=== PATIENT | male | born 1945 | race Caucasian/White ===

== ENCOUNTER 2017-08-25 13:02 | Observation (INO) | payer OTHER, MEDICARE, BC ==
--- NOTE | 2017-08-25 14:29 | EDM.PDOC ---
ED HPI GENERAL MEDICAL PROBLEM - General Chief Complaint: Neuro Symptoms/Deficits Stated Complaint: POSSIBLE MINI STROKE Time Seen by Provider: 08/25/17 14:24 Source of Information: Reports: Patient, Family History Limitations: Reports: No Limitations, Altered Mental Status, Other (pt has loss of short term memory and is repeating the questions. ) - History of Present Illness INITIAL COMMENTS - FREE TEXT/NARRATIVE: pt arrived with loss of short term memory. He was last known normal at 6 thirty am. He was found about 10 thirty repeating the same question over and over He was complaining of a headache. Onset: Today, Other ( known to have started about ten thirty. ) Duration: Hour(s): Location: Reports: Head, Other (loss of short term memory. ) Associated Symptoms: Reports: Confusion - Related Data Allergies Allergy/AdvReac Type Severity Reaction Status Date / Time No Known Allergies Allergy Verified 08/25/17 14:34 Past Medical History - Past Health History Medical/Surgical History: Denies Medical/Surgical History Social & Family History - Tobacco Use Smoking Status *Q: Never Smoker ED ROS GENERAL - Review of Systems Review Of Systems: See Below Constitutional: Reports: No Symptoms HEENT: Reports: No Symptoms Respiratory: Reports: No Symptoms Cardiovascular: Reports: No Symptoms Endocrine: Reports: No Symptoms GI/Abdominal: Reports: No Symptoms : Reports: No Symptoms Musculoskeletal: Reports: No Symptoms Skin: Reports: No Symptoms Neurological: Reports: Other (pt has loss of short term memory. ) Psychiatric: Reports: Anxiety ED EXAM, NEURO - Physical Exam Exam: See Below Text/Narrative:: pt arrived with a history of starting with a loss of short term memory about ten thirty. Exam Limited By: No Limitations General Appearance: Alert, Anxious, Moderate Distress, Other (pupils are equal and reactive. ) Ears: Normal TMs Nose: Normal Inspection Throat/Mouth: Normal Inspection Head Exam: Atraumatic Neck: Normal Inspection Respiratory/Chest: No Respiratory Distress Cardiovascular: Regular Rate, Rhythm GI/Abdominal: Soft, Non-Tender (Male) Exam: Deferred Rectal (Males) Exam: Deferred Neurological: Alert, Other (marked short term emmory loss) Back Exam: Normal Inspection Extremities: Normal Inspection Psychiatric: Anxious Course - Vital Signs Last Recorded V/S: Last Vital Signs Temp 36.3 C 08/25/17 13:28 Pulse 105 H 08/25/17 13:28 Resp 14 08/25/17 13:28 BP 183/97 H 08/25/17 13:28 Pulse Ox 98 08/25/17 13:28 - Orders/Labs/Meds Orders: Active Orders 24 hr Category Date Time Status EKG Documentation Completion [RC] ASDIRECTED Care 08/25/17 14:30 Ordered Head wo Cont [CT] Stat Exams 08/25/17 13:20 Taken EKG 12 Lead [EK] Routine Ther 08/25/17 14:30 Ordered Labs: Laboratory Tests 08/25/17 08/25/17 08/25/17 Range/Units 13:18 13:25 13:25 WBC 11.2 H (4.5-11.0) K/uL RBC 5.08 (4.30-5.90) M/uL Hgb 15.4 H (12.0-15.0) g/dL Hct 44.5 (40.0-54.0) % MCV 88 (80-98) fL MCH 30 (27-31) pg MCHC 35 (32-36) % Plt Count 177 (150-400) K/uL Neut % (Auto) 86 H (36-66) % Lymph % (Auto) 9 L (24-44) % [place] % (Auto) 5 (2-6) % Eos % (Auto) 0 L (2-4) % Baso % (Auto) 0 (0-1) % ABG Carboxyhemoglobin (0.0-1.6) % Sodium 135 L (140-148) mmol/L Potassium 3.9 (3.6-5.2) mmol/L Chloride 100 (100-108) mmol/L Carbon Dioxide 22 (21-32) mmol/L Anion Gap 16.9 H (5.0-14.0) mmol/L BUN 24 H (7-18) mg/dL Creatinine 1.3 (0.8-1.3) mg/dL Est Cr Clr Drug Dosing 53.81 mL/min Estimated GFR (MDRD) 54 L (>60) Glucose 156 H (74-106) mg/dL Calcium 9.2 (8.5-10.1) mg/dL Total Bilirubin 0.5 (0.2-1.0) mg/dL AST 24 (15-37) U/L ALT 30 (12-78) U/L Alkaline Phosphatase 49 (46-116) U/L Total Protein 7.7 (6.4-8.2) g/dL Albumin 4.2 (3.4-5.0) g/dL Globulin 3.5 (2.3-3.5) g/dL Albumin/Globulin Ratio 1.2 (1.2-2.2) Urine Color Yellow Urine Appearance Clear Urine pH 5.0 (4.5-8.0) Ur Specific [place] 1.025 (1.008-1.030) Urine Protein 30 H (NEGATIVE) mg/dL Urine Glucose (UA) Normal (NEGATIVE) mg/dL Urine Ketones 15 H (NEGATIVE) mg/dL Urine Occult Blood Large (NEGATIVE) Urine Nitrite Negative (NEGAITVE) Urine Bilirubin Negative (NEGATIVE) Urine Urobilinogen Normal (NORMAL) mg/dL Ur Leukocyte Esterase Negative (NEGATIVE) Urine RBC 0-5 (0-5) Urine WBC Not seen (0-5) Ur Epithelial Cells Not seen Amorphous Sediment Few Urine Bacteria Not seen Urine Mucus Not seen 08/25/17 Range/Units 13:25 WBC (4.5-11.0) K/uL RBC (4.30-5.90) M/uL Hgb (12.0-15.0) g/dL Hct (40.0-54.0) % MCV (80-98) fL MCH (27-31) pg MCHC (32-36) % Plt Count (150-400) K/uL Neut % (Auto) (36-66) % Lymph % (Auto) (24-44) % Crawford % (Auto) (2-6) % Eos % (Auto) (2-4) % Baso % (Auto) (0-1) % ABG Carboxyhemoglobin 1.9 H (0.0-1.6) % Sodium (140-148) mmol/L Potassium (3.6-5.2) mmol/L Chloride (100-108) mmol/L Carbon Dioxide (21-32) mmol/L Anion Gap (5.0-14.0) mmol/L BUN (7-18) mg/dL Creatinine (0.8-1.3) mg/dL Est Cr Clr Drug Dosing mL/min Estimated GFR (MDRD) (>60) Glucose (74-106) mg/dL Calcium (8.5-10.1) mg/dL Total Bilirubin (0.2-1.0) mg/dL AST (15-37) U/L ALT (12-78) U/L Alkaline Phosphatase (46-116) U/L Total Protein (6.4-8.2) g/dL Albumin (3.4-5.0) g/dL Globulin (2.3-3.5) g/dL Albumin/Globulin Ratio (1.2-2.2) Urine Color Urine Appearance Urine pH (4.5-8.0) Ur Specific [place] (1.008-1.030) Urine Protein (NEGATIVE) mg/dL Urine Glucose (UA) (NEGATIVE) mg/dL Urine Ketones (NEGATIVE) mg/dL Urine Occult Blood (NEGATIVE) Urine Nitrite (NEGAITVE) Urine Bilirubin (NEGATIVE) Urine Urobilinogen (NORMAL) mg/dL Ur Leukocyte Esterase (NEGATIVE) Urine RBC (0-5) Urine WBC (0-5) Ur Epithelial Cells Amorphous Sediment Urine Bacteria Urine Mucus - Re-Assessments/Exams Free Text/Narrative Re-Assessment/Exam: 08/25/17 14:33 cat scan of the head was neg. He had no lab work that looked unusual. Departure - Departure Time of Disposition: 14:34 Disposition: Admitted As Inpatient 66 Condition: Fair Clinical Impression: Global amnesia - Discharge Information Referrals: PCP,None [Primary Care Provider] - Forms: ED Department Discharge Care Plan Goals: admit to Dr gusman - My Orders Last 24 Hours: My Active Orders 08/25/17 13:20 Head wo Cont [CT] Stat 08/25/17 14:30 EKG Documentation Completion [RC] ASDIRECTED EKG 12 Lead [EK] Routine - Assessment/Plan Last 24 Hours: My Active Orders 08/25/17 13:20 Head wo Cont [CT] Stat 08/25/17 14:30 EKG Documentation Completion [RC] ASDIRECTED EKG 12 Lead [EK] Routine
--- NOTE | 2017-08-25 15:52 | PCM.HP ---
H&P History of Present Illness - General Date of Service: 08/25/17 Admit Problem/Dx: Admission Diagnosis/Problem Admission Diagnosis/Problem Amnesia Source of Information: Patient, Family, Provider, RN Notes Reviewed History Limitations: Reports: No Limitations - History of Present Illness Initial Comments - Free Text/Narative: Mr. Santa is a 71-year-old gentleman who is admitted to observation status for further evaluation and management of amnesia. He was well until this morning, when he developed abrupt onset antegrade amnesia. He had been out doing some ice fishing, his son noted that he was asking the same question repeatedly and brought him in for evaluation. He denies any other neurologic symptoms, weakness , or sensory changes. Laboratory studies are unremarkable, CT scan of the head shows no acute abnormalities. He has never had similar symptoms in the past. - Related Data Allergies/Adverse Reactions: Allergies Allergy/AdvReac Type Severity Reaction Status Date / Time No Known Allergies Allergy Verified 08/25/17 14:34 Home Medications: Home Meds Indomethacin [Indocin] 1 tab PO DAILY 08/25/17 [History] Spironolactone [Aldactone] 1 tab PO DAILY 08/25/17 [History] Past Medical History - Past Health History Medical/Surgical History: Denies Medical/Surgical History Social & Family History - Tobacco Use Smoking Status *Q: Never Smoker H&P Review of Systems - Review of Systems: Review Of Systems: See Below General: Denies: Fever, Chills, Weakness, Diaphoresis, Decreased Appetite HEENT: Reports: No Symptoms Pulmonary: Reports: No Symptoms Cardiovascular: Reports: No Symptoms Gastrointestinal: Reports: No Symptoms Genitourinary: Reports: No Symptoms Musculoskeletal: Reports: No Symptoms Skin: Reports: No Symptoms Psychiatric: Reports: No Symptoms Neurological: Reports: Other (Amnesia). Denies: Confusion, Dizziness, Headache , Numbness, Paresthesia, Seizure, Trouble Speaking, Difficulty Walking Hematologic/Lymphatic: Reports: No Symptoms Immunologic: Reports: No Symptoms Exam - Exam Exam: See Below - Vital Signs Vital Signs: Last Vital Signs Temp 97.3 F 08/25/17 13:28 Pulse 105 H 08/25/17 13:28 Resp 14 08/25/17 13:28 BP 183/97 H 08/25/17 13:28 Pulse Ox 98 08/25/17 13:28 Weight: 210 lb - Exam Quality Assessment: DVT Prophylaxis General: Alert, Oriented, Cooperative, Mild Distress HEENT: Conjunctiva Clear, Mucosa Moist & [place], Normal Nasal Septum, Posterior Pharynx Clear, Pupils Equal. No: Hearing Intact Neck: Supple, Trachea Midline, +2 Carotid Pulse wo Bruit Lungs: Clear to Auscultation, Normal Respiratory Effort Cardiovascular: Regular Rate, Regular Rhythm, Normal S1, Normal S2 GI/Abdominal Exam: Soft, Non-Tender, No Organomegaly, No Distention Back Exam: Normal Inspection, Full Range of Motion Extremities: Non-Tender, No Pedal Edema Skin: Warm, Dry, Intact Neurological: Cranial Nerves Intact, Strength Equal Bilateral, Normal Speech, Normal Tone, Sensation Intact, Other (Antegrade amnesia and retrograde amnesia) Neuro Extensive - Mental Status: Alert, Oriented x3, Normal Cognition, Memory Loss-Recent Events. No: Memory Intact - Patient Data Lab Results Last 24 hrs: Laboratory Results - last 24 hr 08/25/17 08/25/17 08/25/17 Range/Units 13:18 13:25 13:25 WBC 11.2 H (4.5-11.0) K/uL RBC 5.08 (4.30-5.90) M/uL Hgb 15.4 H (12.0-15.0) g/dL Hct 44.5 (40.0-54.0) % MCV 88 (80-98) fL MCH 30 (27-31) pg MCHC 35 (32-36) % Plt Count 177 (150-400) K/uL Neut % (Auto) 86 H (36-66) % Lymph % (Auto) 9 L (24-44) % [place] % (Auto) 5 (2-6) % Eos % (Auto) 0 L (2-4) % Baso % (Auto) 0 (0-1) % ABG Carboxyhemoglobin (0.0-1.6) % Sodium 135 L (140-148) mmol/L Potassium 3.9 (3.6-5.2) mmol/L Chloride 100 (100-108) mmol/L Carbon Dioxide 22 (21-32) mmol/L Anion Gap 16.9 H (5.0-14.0) mmol/L BUN 24 H (7-18) mg/dL Creatinine 1.3 (0.8-1.3) mg/dL Est Cr Clr Drug Dosing 53.81 mL/min Estimated GFR (MDRD) 54 L (>60) Glucose 156 H (74-106) mg/dL Calcium 9.2 (8.5-10.1) mg/dL Total Bilirubin 0.5 (0.2-1.0) mg/dL AST 24 (15-37) U/L ALT 30 (12-78) U/L Alkaline Phosphatase 49 (46-116) U/L Total Protein 7.7 (6.4-8.2) g/dL Albumin 4.2 (3.4-5.0) g/dL Globulin 3.5 (2.3-3.5) g/dL Albumin/Globulin Ratio 1.2 (1.2-2.2) Urine Color Yellow Urine Appearance Clear Urine pH 5.0 (4.5-8.0) Ur Specific [place] 1.025 (1.008-1.030) Urine Protein 30 H (NEGATIVE) mg/dL Urine Glucose (UA) Normal (NEGATIVE) mg/dL Urine Ketones 15 H (NEGATIVE) mg/dL Urine Occult Blood Large (NEGATIVE) Urine Nitrite Negative (NEGAITVE) Urine Bilirubin Negative (NEGATIVE) Urine Urobilinogen Normal (NORMAL) mg/dL Ur Leukocyte Esterase Negative (NEGATIVE) Urine RBC 0-5 (0-5) Urine WBC Not seen (0-5) Ur Epithelial Cells Not seen Amorphous Sediment Few Urine Bacteria Not seen Urine Mucus Not seen 08/25/17 Range/Units 13:25 WBC (4.5-11.0) K/uL RBC (4.30-5.90) M/uL Hgb (12.0-15.0) g/dL Hct (40.0-54.0) % MCV (80-98) fL MCH (27-31) pg MCHC (32-36) % Plt Count (150-400) K/uL Neut % (Auto) (36-66) % Lymph % (Auto) (24-44) % [place] % (Auto) (2-6) % Eos % (Auto) (2-4) % Baso % (Auto) (0-1) % ABG Carboxyhemoglobin 1.9 H (0.0-1.6) % Sodium (140-148) mmol/L Potassium (3.6-5.2) mmol/L Chloride (100-108) mmol/L Carbon Dioxide (21-32) mmol/L Anion Gap (5.0-14.0) mmol/L BUN (7-18) mg/dL Creatinine (0.8-1.3) mg/dL Est Cr Clr Drug Dosing mL/min Estimated GFR (MDRD) (>60) Glucose (74-106) mg/dL Calcium (8.5-10.1) mg/dL Total Bilirubin (0.2-1.0) mg/dL AST (15-37) U/L ALT (12-78) U/L Alkaline Phosphatase (46-116) U/L Total Protein (6.4-8.2) g/dL Albumin (3.4-5.0) g/dL Globulin (2.3-3.5) g/dL Albumin/Globulin Ratio (1.2-2.2) Urine Color Urine Appearance Urine pH (4.5-8.0) Ur Specific [place] (1.008-1.030) Urine Protein (NEGATIVE) mg/dL Urine Glucose (UA) (NEGATIVE) mg/dL Urine Ketones (NEGATIVE) mg/dL Urine Occult Blood (NEGATIVE) Urine Nitrite (NEGAITVE) Urine Bilirubin (NEGATIVE) Urine Urobilinogen (NORMAL) mg/dL Ur Leukocyte Esterase (NEGATIVE) Urine RBC (0-5) Urine WBC (0-5) Ur Epithelial Cells Amorphous Sediment Urine Bacteria Urine Mucus Result Diagrams: 08/25/17 13:25 08/25/17 13:25 *Q Meaningful Use (ADM) - VTE *Q VTE Criteria *Q: - VTE Risk Assess *Q Each Risk Factor Represents 1 Point: Obesity ( BMI > 25 kg/m2) Total Score 1 Point Risk Factors: 1 Each Risk Factor Represents 2 Points: Age 60 - 74 Years Total Score 2 Point Risk Factors: 2 Each Risk Factor Represents 3 Points: None Total Score 3 Point Risk Factors: 0 Each Risk Factor Represents 5 Points: None Total Score 5 Point Risk Factors: 0 Venous Thromboembolism Risk Factor Score *Q: 3 - Stroke *Q Stroke Criteria *Q: - AMI *Q AMI Criteria *Q: Problem List Initiated/Reviewed/Updated: Yes Orders Last 24hrs: Active Orders 24 hr Category Date Time Status Patient Status Manage Transfer [TRANSFER] Routine ADT 08/25/17 15:45 Ordered EKG Documentation Completion [RC] ASDIRECTED Care 08/25/17 14:30 Active Head wo Cont [CT] Stat Exams 08/25/17 13:20 Taken Resuscitation Status Routine Resus Stat 08/25/17 15:47 Ordered EKG 12 Lead [EK] Routine Ther 08/25/17 14:30 Ordered Assessment/Plan Comment:: ASSESSMENT AND PLAN TRANSIENT GLOBAL AMNESIA-abrupt onset today with antegrade and retrograde amnesia. No other neurologic symptoms, evaluation otherwise unremarkable. -Cardiac monitoring -Neuro checks every 4 hours -MRI as an outpatient, not available here until Sunday morning HYPERTENSION -Continue outpatient medical regimen MAINTENANCE ISSUES -DVT prophylaxis; Lovenox 40 mg subcutaneous daily -GI prophylaxis; not indicated -Lopez catheter; not indicated -Nutrition; regular diet -Nicotine dependence; not required CODE STATUS-FULL CODE ADMISSION STATUS-this patient will be admitted to observation status, expect no more than a one night hospital stay for evaluation and management of problems as outlined above. DISPOSITION-anticipate discharge to home after the hospital stay. PRIMARY CARE PROVIDER-patient is from out of this area and receives primary care in [facility]
[2017-08-25] MEDS ORDERED: Ondansetron 4 MG Tab.DIS PO PRN (16:13)
[2017-08-25] MEDS ORDERED: Magnesium Hydroxide 400 MG/5 ML Susp 30 ML Cup PO PRN (16:13)
[2017-08-25] MEDS ORDERED: Melatonin 3 MG Tab PO PRN (16:13)
[2017-08-25] MEDS ORDERED: Polyethylene Glycol 3350 Powder 17 GM Packet PO PRN (16:13)
[2017-08-25] MEDS ORDERED: Enoxaparin 40 MG/0.4 ML Syringe SUBCUT SCH (16:13)
[2017-08-25] MEDS ORDERED: Sodium Chloride 0.9% 10 ML Syringe FLUSH PRN (16:13)
[2017-08-25] MEDS ORDERED: oxyCODONE 5 MG Tab PO PRN (16:13)
[2017-08-25] MEDS: Acetaminophen 325 MG Tab PO PRN (18:48)
[2017-08-26] MEDS: Acetaminophen 325 MG Tab PO PRN (08:50)
[2017-08-26] MEDS ORDERED: Spironolactone 25 MG Tab PO SCH (09:00)
[2017-08-26] MEDS ORDERED: Indomethacin 25 MG Cap PO SCH (09:00)
--- NOTE | 2017-08-26 10:22 | PCM.DCSUM1 ---
Discharge Summary - Hospital Course Brief History: Mr. Santa is a 71-year-old gentleman who is admitted to observation status through the emergency department with abrupt onset of antegrade and retrograde amnesia. - Discharge Data Discharge Date: 08/26/17 Discharge Disposition: Home, Self-Care 01 Condition: Good - Discharge Diagnosis/Problem(s) (1) Transient global amnesia SNOMED Code(s): 153222658 ICD Code: G45.4 - TRANSIENT GLOBAL AMNESIA Status: Acute Current Visit: Yes - Patient Summary/Data Hospital Course: Mr. Santa is a 71-year-old gentleman who was admitted to observation status for further evaluation and management of amnesia. He was well until the morning of admission, when he developed abrupt onset antegrade amnesia. He had been out doing some ice fishing, his son noted that he was asking the same question repeatedly and brought him in for evaluation. He denies any other neurologic symptoms, weakness, or sensory changes. Laboratory studies were unremarkable, CT scan of the head showed no acute abnormalities. He has never had similar symptoms in the past. He was admitted to the hospital on observation status, neuro checks were obtained every 4 hours. Over the course of the next day of hospitalization amnesia resolved and he was back to baseline by the time of discharge. No other neurologic symptoms or abnormalities were identified. Cardiac monitoring showed no significant cardiac dysrhythmias. Activity will be as tolerated and he will resume his usual diet. He should see his primary care for his edition for follow -up in the next few days and an MRI with and without contrast of the brain should be obtained to complete his evaluation. MRI was not obtained during hospitalization as it was not available over this weekend. - Patient Instructions Diet: Usual Diet as Tolerated Activity: As Tolerated Other/Special Instructions: Schedule follow-up appointment with primary care provider in the next few days. MRI of the brain with and without contrast complete evaluation. - Discharge Plan Home Medications: Home Meds Indomethacin [Indocin] 1 tab PO DAILY 08/25/17 [History] Spironolactone [Aldactone] 1 tab PO DAILY 08/25/17 [History] Referrals: PCP,None [Primary Care Provider] - - Patient Data Vitals - Most Recent: Last Vital Signs Temp 97.7 F 08/26/17 07:00 Pulse 70 08/26/17 07:00 Resp 18 08/26/17 07:00 BP 145/88 H 08/26/17 07:00 Pulse Ox 95 08/26/17 07:00 Weight - Most Recent: 210 lb I&O - Last 24 hours: Intake & Output 08/25/17 08/26/17 08/26/17 22:59 06:59 14:59 Intake Total 600 236 Balance 600 236 Med Orders - Current: Current Medications Acetaminophen (Tylenol) 650 mg PO Q4H PRN PRN Reason: Pain (Mild 1-3)/fever Last Admin: 08/26/17 08:50 Dose: 650 mg Enoxaparin Sodium (Lovenox) 40 mg SUBCUT Q24H [facility] Indomethacin (Indocin) 25 mg PO DAILY [facility] Last Admin: 08/26/17 10:15 Dose: Not Given Magnesium Hydroxide (Milk Of Magnesia) 30 ml PO Q12H PRN PRN Reason: Constipation Melatonin (Melatonin) 9 mg PO BEDTIME PRN PRN Reason: Sleep Ondansetron HCl (Zofran Odt) 4 mg PO Q6H PRN PRN Reason: Nausea able to take PO Oxycodone HCl (Oxycodone) 5 mg PO Q4H PRN PRN Reason: Pain (moderate 4-6) Polyethylene Glycol (Miralax) 17 gm PO DAILY PRN PRN Reason: Constipation Senna/Docusate Sodium (Senna Plus) 1 tab PO BID PRN PRN Reason: Constipation Sodium Chloride (Saline Flush) 10 ml FLUSH ASDIRECTED PRN PRN Reason: Keep Vein Open Spironolactone (Aldactone) 25 mg PO DAILY [facility] Last Admin: 08/26/17 10:15 Dose: Not Given Discontinued Medications Enoxaparin Sodium (Lovenox) 40 mg SUBCUT DAILY [facility] Last Admin: 08/25/17 18:44 Dose: 40 mg *Q Meaningful Use (DIS) - VTE *Q VTE Criteria *Q: - Stroke *Q Stroke Criteria *Q: - AMI *Q AMI Criteria *Q:
[2017-08-26] MEDS ORDERED: Enoxaparin 40 MG/0.4 ML Syringe SUBCUT SCH (16:00)
== END 2017-08-26 11:35 | disposition home or self-care (01) ==
LOC: JP.ED 13:02 → JP.MS 15:45 → JP.ED 15:55
PROVIDERS: ADMIT Hospitalist; ATTEND Hospitalist
DX: G45.4 Transient global amnesia (principal); E66.9 Obesity, unspecified; Z68.31 Body mass index [BMI] 31.0-31.9, adult; Z79.899 Other long term (current) drug therapy
CPT/HCPCS: 36415; 70450; 80053; 81001; 82375; 85025; 93005; 99285; A9270; J1650